=== PATIENT | male | born 1965 | race Caucasian/White ===

== ENCOUNTER 2020-02-07 17:11 | Emergency (ER) | payer MEDICAID ==
[~2020-02-07] VITALS: Ht 172.7 cm; Wt 125.0 kg
--- NOTE | 2020-02-07 17:41 | NUR ---
PT CAME IN CO OF LOWER LEFT LEG SWELLING REDNESS AND PAIN. IT WAS FOUND IN TRIAGE TO BE HYPERTENSIVE. LABS DRAWN. US IN WITH PT. PROVIDER BEDSIDE FOR ASSESSMENT
--- NOTE | 2020-02-07 17:41 | NUR ---
PROVIDER NOTIFIED OF PT BP.
[2020-02-07] MEDS ORDERED: LABETALOL 20 MG/4 ML ONE (17:51)
[2020-02-07 17:55] LABS: BASOPHILS % (AUTO) 1 % (0-1); EOSINOPHILS % (AUTO) 2 % (1-7); LYMPHOCYTES % (AUTO) 31 % (22-44); MEAN CORPUSCULAR HEMOGLOBIN 31.8 pg (27.5-34.5); MEAN CORPUSCULAR HGB CONC 33.8 g/dL (33.2-36.2); MEAN PLATELET VOLUME 8.4 fL (7.4-10.4); MONOCYTES % (AUTO) 9 % (2-9); NEUTROPHILS % (AUTO) 57 % (42-75); PLATELET COUNT 350 x10^3/uL (130-400); RED BLOOD COUNT 4.97 x10^6/uL (4.38-5.82); RED CELL DISTRIBUTION WIDTH 13.7 % (9.4-14.8)
[2020-02-07 17:59] LABS: ALANINE AMINOTRANSFERASE 31 U/L (12-78); ALBUMIN 3.8 g/dL (3.4-5.0); ANION GAP 7 mmol/L (5-15); CALCIUM 9.3 mg/dL (8.5-10.1); CHLORIDE 105 mmol/L (98-107); CREATININE 1.07 mg/dL (0.7-1.3)
[2020-02-07 18:00] LABS: MD NO
[2020-02-07] MEDS ORDERED: PLEASE ENTER ALLERGIES MC SCH (18:00)
[2020-02-07] MEDS ORDERED: LABETALOL 5MG/ML, 20ML IVPush ONE ×2 (18:00→19:30)
[2020-02-07 18:04] LABS: ALKALINE PHOSPHATASE 123 U/L (45-117); BILIRUBIN,TOTAL 0.3 mg/dL (0.2-1.0); TOTAL PROTEIN 7.7 g/dL (6.4-8.2); TROPONIN I < 0.015 ng/mL (0.000-0.045)
[2020-02-07 19:21] VITALS: BP 174/96
--- NOTE | 2020-02-07 19:24 | NUR ---
PT RESTING IN MARK [place] [facility]. UP FOR RECHECK
[2020-02-07] MEDS ORDERED: NITROGLYCERIN OINT 2%, 1GM TP ONE (19:30)
== END 2020-02-07 20:05 | disposition home or self-care (01) ==
LOC: EDBD 17:11 → ED 20:00
DX: L03.116 Cellulitis of left lower limb (principal); L03.115 Cellulitis of right lower limb; R60.0 Localized edema; R00.0 Tachycardia, unspecified; R06.00 Dyspnea, unspecified; I10 Essential (primary) hypertension
CPT/HCPCS: 36415; 71045; 80053; 83880; 84484; 85025; 93005; 96374; 96376; 99285